=== PATIENT | female | born 1980 | race Caucasian/White ===

== ENCOUNTER → 2016-04-21 | Outpatient (CLI) | payer BC ==
[~2016-04-21] MED LIST: BCPILLS PO; METO-157 PO; OXYC-57 PO; PROM12.57 PO
== END | disposition home or self-care (01) ==
LOC: C.PAPS 10:11
PROVIDERS: ATTEND Obstetrics & Gynecology
DX: Z01.419 Encounter for gynecological examination (general) (routine) without abnormal findings (principal)